=== PATIENT | male | born 1995 | race Caucasian/White ===

== ENCOUNTER 2025-07-24 12:12 | Emergency (ER) | payer MEDICAID ==
[~2025-07-24] VITALS: Ht 152.4 cm; Wt 75.0 kg
[~2025-07-24 12:12] MED LIST: GUAI120015 PO
[2025-07-24 12:24] VITALS: BP 171/149; PULSE 78; RESP 18; TEMP 97.6; O2SAT 99
[2025-07-24] MEDS ORDERED: CLIN300C71 PO (14:42)
[2025-07-24] MEDS ORDERED: ACET-1025 PO (14:42)
[2025-07-24] MEDS ORDERED: IBUP-1986 PO (14:42)
--- NOTE | 2025-07-24 14:42 | Physician Documentation ---
HPI ~ General Chief Complaint: Tooth Problem Stated Complaint: TOOTH PAIN Time Seen by MD: 13:24 Primary Medical Doctor: [facility] History of Present Illness HPI Comment Patient is seen today with complaints of dental pain of right lower molar after dental fracture. Patient states he has been to see the dentist but can not get anyone to pull the tooth. He has no other concern or complaint at this time. Medication Reconciliation Allergies: Coded Allergies: Penicillins (Unverified Allergy, Unknown, 07/24/25) amoxicillin (Verified Allergy, Unknown, 07/24/25) Scheduled Guaifenesin (Mucinex), 1 TABLET PO BID Past Medical History Past Medical History: No Pertinent History Past Surgical History: no surgical history Other Past Family History: NONE Alcohol Use: None Drug Use: none Lives with: Mother Occupation: student Review of Systems Constitutional: Denies: chills, fever, weakness Eyes: Denies: pain, blurred vision ENT: Denies: ear pain, nose pain, throat pain, mouth pain Respiratory: Denies: cough, shortness of breath Cardiovascular: Denies: chest pain, palpitations Gastrointestinal: Denies: abdominal pain, nausea, vomiting Genitourinary: Denies: burning, dysuria Male Genitalia: Denies: penile discharge, testicular pain Neurological: Denies: headache, dizziness Musculoskeletal: Denies: pain, swelling Integumentary: Denies: rash, lesions Allergic/Immunologic: Denies: hives, itching Hematologic/Lymphatic: Denies: no symptoms reported Psychiatric: Denies: depression, anxiety Physical Exam Vital Signs: Temperature: 97.6, Source: Temporal, Heart Rate: 78, Respiratory Rate: 18, BP: 171/149, Pulse Oximetry: 99, Weight: 75.000 Physical Exam General: Awake and Alert, no acute distress. HEENT: Patient on exam does have multiple dental fillings in dental fracture of right lower molar. I do not appreciate any periapical abscess at this time. Conjunctiva pink, Sclera clear, Mucus Membranes moist. Neck: Supple without masses and tenderness. Resp: Unlabored. Lungs clear to auscultation bilaterally. Extremities: No cyanosis,clubbing or edema. Skin: Warm and Dry. Progress Results/Orders Results/Orders Vital Signs 07/24/25 12:24 Temp 97.6 Pulse 78 Resp 18 B/P (MAP) 171/149 Pulse Ox 99 Medical Decision Making Additional information obtaine: N/A Findings Patient is seen today with complaints of dental pain of right lower molar after dental fracture. Patient states he has been to see the dentist but can not get anyone to pull the tooth. He has no other concern or complaint at this time. Patient was given a prescription for clindamycin 300 mg one tab by mouth 3 times a day due to patient having penicillin allergy as well as ibuprofen and Tylenol prescriptions to pharmacy. Patient will follow up with dentist as soon as possible. Differential Dx:Considerations: Include: Alveolar fracture, Periapical abscess, Peridontal abscess, Tooth avulsion, Tooth Fracture Departure Disposition: HOME / SELF CARE / HOMELESS Impression: Primary Impression: Dental abscess Condition: Stable Discharge Instructions: Dental Abscess Additional Instructions: Patient was given a prescription for clindamycin 300 mg one tab by mouth 3 times a day due to patient having penicillin allergy as well as ibuprofen and Tylenol prescriptions to pharmacy. Patient will follow up with dentist as soon as possible. Referrals: NO PRIMARY CARE PROVIDER (PCP) Prescriptions Ibuprofen (Ibuprofen) 800 Mg Tablet 1 TAB PO Q8H for pain for 10 Days, #30 TAB 0 Refills Prov: JONATHAN LEMON 07/24/25 Acetaminophen (Tylenol Extra Strength) 500 Mg Tablet 2 TAB PO Q6H PRN PRN for pain or fever for 7 Days, #56 TAB Prov: JONATHAN LEMON 07/24/25 Clindamycin HCl (Clindamycin HCl) 300 Mg Capsule 1 CAP PO Q8H for 10 Days, #30 CAP Prov: JONATHAN LEMON 07/24/25 Signature Scribe Signature: No scribe Attestation: No scribe JONATHAN LEMON Jul 24, 2025 14:42
== END 2025-07-24 14:58 | disposition home or self-care (01) ==
LOC: ER 12:13
DX: K04.7 Periapical abscess without sinus (principal); Z88.0 Allergy status to penicillin
CPT/HCPCS: 99283